=== PATIENT | male | born 1940 | race Caucasian/White ===

== ENCOUNTER 2017-09-02 12:32 | Inpatient (IN) | payer OTHER, MEDICAID ==
[~2017-09-02] VITALS: Ht 167.6 cm; Wt 70.8 kg
[2017-09-02 12:43] VITALS: BP 166/72
--- NOTE | 2017-09-02 12:50 | NUR ---
Patient ambulated to bed 3. RN evaluating patient at bedside.
[2017-09-02] MEDS ORDERED: NACL 0.9% 1,000 ML IV SCH (12:53)
--- NOTE | 2017-09-02 12:53 | NUR ---
PATIENT PRESENTS TO ED WITH C/O ABDOMINAL PAIN . PT STATES THE PAIN STARTED 3 DAYS AGO AND HAS GOTTEN PROGRESSIVELY WORSE . DENIES N/V/D; SKIN IS PINK/WARM/DRY; AAOX4 WITH EVEN AND STEADY GAIT; LUNGS CLEAR BL; HR EVEN AND REGULAR; PT DENIES ANY FEVER, CP, SOB, OR COUGH AT THIS TIME; PATIENT STATES PAIN OF 5/10 AT THIS TIME; VSS; PATIENT POSITIONED FOR COMFORT; HOB ELEVATED; BEDRAILS UP X2; BED DOWN. ER MD MADE AWARE OF PT STATUS.
[2017-09-02] MEDS ORDERED: FAMOTIDINE 20 MG/2 ML VIAL IVP ONE (12:55)
[2017-09-02] MEDS ORDERED: MORPHINE SULFATE 2 MG/ML SYR IVP ONE (12:55)
[2017-09-02] MEDS ORDERED: ONDANSETRON 4 MG/2 ML VIAL IVP ONE (12:55)
[2017-09-02 13:28] LABS: BASOPHILS # (AUTO) 0.1 K/uL (0.00-0.22); BASOPHILS % (AUTO) 0.8 % (0.0-2.0); EOSINOPHILS % (AUTO) 0.2 % (0.0-4.0); HEMATOCRIT 40.9 % (36-52); HEMOGLOBIN 13.8 g/dL (12.0-18.0); LYMPHOCYTES # (AUTO) 0.5 K/uL (2.0-11.5); LYMPHOCYTES % (AUTO) 4.7 % (20.5-51.1); MEAN CORPUSCULAR HEMOGLOBIN 31 pg (27-31); MEAN CORPUSCULAR HGB CONC 34 g/dL (33-37); MEAN CORPUSCULAR VOLUME 92 fL (80-94); MONOCYTES # (AUTO) 0.3 K/uL (0.8-1.0); MONOCYTES % (AUTO) 2.4 % (1.7-9.3); NEUTROPHILS # (AUTO) 10.8 K/uL (1.8-7.7); NEUTROPHILS % (AUTO) 91.9 % (42.2-75.2); PLATELET COUNT (AUTO) 284 K/uL (140-450); RED BLOOD CELL COUNT(AUTO) 4.44 MIL/uL (4.20-6.10)
[2017-09-02 13:39] LABS: ANION GAP 13.1 (8-16); CARBON DIOXIDE 28.5 mmol/L (21-32); CHLORIDE 101 mmol/L (98-107); CREATININE 0.9 mg/dL (0.7-1.3); GLUCOSE 146 mg/dL (74-106); POTASSIUM 3.6 mmol/L (3.5-5.1); SODIUM SERUM 139 mmol/L (136-145); UREA NITROGEN, BLOOD 15 mg/dL (7-18)
[2017-09-02 13:45] LABS: ALBUMIN 3.8 g/dL (3.4-5.0); AMYLASE 54 U/L (25-115); ASPARTATE AMINOTRANSFERASE 19 U/L (15-37); LIPASE 63 U/L (73-393); TOTAL BILIRUBIN 0.4 mg/dL (0.0-1.0)
[2017-09-02 13:55] LABS: WHITE BLOOD COUNT (AUTO) 11.7 K/uL (4.8-10.8)
--- NOTE | 2017-09-02 13:59 | NUR ---
Dr. Xiong evaluating patient at bedside.
--- NOTE | 2017-09-02 14:13 | NUR ---
PT TAKEN TO CT VIA W/C ACCOMPANIED BY [employer] AT THIS TIME.
[2017-09-02] MEDS ORDERED: HYDROmorphone 1 MG/ML AMP IVP ONE (14:35)
--- NOTE | 2017-09-02 15:23 | NUR ---
US AT BEDSIDE.
--- NOTE | 2017-09-02 15:56 | NUR ---
PT APPEARS TO BE RESTING COMFORTABLY IN BED; POSITIONED FOR COMFORT; WILL CONTINUE TO MONITOR.
[2017-09-02] MEDS ORDERED: HYDROcodone/APAP 7.5/325 MG 1 TAB PO PRN (16:25)
[2017-09-02] MEDS ORDERED: ONDANSETRON 4 MG/2 ML VIAL IM/IVP PRN (16:25)
[2017-09-02] MEDS ORDERED: DOCUSATE SODIUM 100 MG GELCAP PO PRN (16:25)
[2017-09-02] MEDS ORDERED: ACETAMINOPHEN 325 MG TAB PO PRN (16:25)
--- NOTE | 2017-09-02 16:46 | NUR ---
CALLED FABIANO JUAREZ TO GIVE REPORT; ANN STATES IN ISOLATION ROOM, WILL CALL BACK IN 10 MINUTES.
--- NOTE | 2017-09-02 16:48 | NUR ---
Dr. Beasley evaluatign patient at bedside.
--- NOTE | 2017-09-02 17:06 | NUR ---
REPORT GIVEN TO FABIANO UJAREZ.
[2017-09-02 17:07] LABS: PROTHROMBIN TIME 10.6 secs (10.8-13.4)
[2017-09-02 17:10] VITALS: BP 148/77
--- NOTE | 2017-09-02 17:11 | NUR ---
Patient will be admitted to care of DR. POLK. Admited to TELEMETRY. Will go to room 122A. Belongings list completed. Report to FABIANO JUAREZ.
[2017-09-02 17:17] LABS: APPEARANCE,URINE CLEAR (CLEAR); BILIRUBIN,URINE NEGATIVE (NEGATIVE); BLOOD, URINE TRACE-I (NEGATIVE); COLOR,URINE YELLOW (YELLOW); LEUKOCYTE ESTERASE ,URINE NEGATIVE (NEGATIVE); NITRITE, URINE NEGATIVE (NEGATIVE); PH,URINE 5.5 (5.0-9.0); UGLUCOSE NEGATIVE (NEGATIVE)
[2017-09-02 17:17] LABS: CHOL/HDL RATIO 4.5 (1-4.5); FREE T4 (FREE THYROXINE) 0.93 ng/dL (0.76-1.46); MAGNESIUM 1.8 mg/dL (1.8-2.4); PHOSPHORUS 3.7 mg/dL (2.5-4.9); THYROID STIMULATING HORMONE 2.6 uIU/mL (0.34-3.74)
[2017-09-02] MEDS ORDERED: BENAZEPRIL HCL 20 MG TABLET PO (17:19)
[2017-09-02 17:21] LABS: RBC,URINE 3-10 (FEW) /HPF (0-5)
[2017-09-02 17:22] LABS: WBC,URINE 0-5 (RARE) /HPF (0-5)
[2017-09-02 17:25] LABS: BARBITURATE, URINE NEG. ng/ml (NEG <=200); BENZODIAZEPINE, URINE NEG. ng/mL (NEG <=200); CANNABINOID, URINE NEG. ng/mL (NEG <=50); COCAINE, URINE NEG. ng/mL (NEG <=300); OPIATE, URINE POS. ng/mL (NEG <=2000); PHENCYCLIDINE SCREEN,URINE NEG. ng/mL (NEG <=25)
[2017-09-02] MEDS ORDERED: KETOROLAC 30 MG/ML VIAL IM PRN (17:30)
--- NOTE | 2017-09-02 17:30 | NUR ---
Admitted from ED , with chief complaint of ABDOMINAL PAIN X 3 DAYS. PT IS A 76 y/o ,Male, Cooperative,oriented to call light, bed, phone,television, bathroom, smoking policy,visiting hours, procedures, ID bracelet on. Belongings list checked. ADMISSION DONE WITH [employer] BARKER OPERATOR #[id number]
[2017-09-02] MEDS: NACL 0.9% 1,000 ML IV SCH (17:32)
[2017-09-02] MEDS: LISINOPRIL 20 MG TAB PO SCH ×2 (18:00→21:09)
[2017-09-02] MEDS ORDERED: KETOROLAC 30 MG/ML VIAL IVP PRN ×2 (19:15)
--- NOTE | 2017-09-02 19:29 | NUR ---
PT RESTING. NO SOB NOTED. NO C/O PAIN AT THIS TIME. NPO MAINTAINED. ENDORSED TO NEXT SHIFT NURSE FOR CONTINUITY OF CARE.
--- NOTE | 2017-09-02 19:30 | NUR ---
RECEIVED REPORT FROM AM NURSE. PT IS AAOX4, ON ROOM AIR. IV ACCESS IS INTACT, PATENT, AND ASYMPTOMATIC, RUNNING NS. NO SIGNS OF ACUTE DISTRESS, BOWEL SOUNDS ACTIVE ON ALL FOUR QUADRANTS. SKIN COLOR APPROPRIATE TO ETHNICITY, PT DENIES ANY PAIN AT THIS TIME. PT IS AMBULATORY WITH BP. PLAN OF CARE DISCUSSED, PT VERBALIZED UNDERSTANDING. BED IN LOW POSITION, BILATERAL HALF SIDE RAILS UP, CALL LIGHT WITHIN REACH, WILL CONTINUE TO MONITOR.
[2017-09-02 20:00] VITALS: BP 146/77
[2017-09-02] MEDS: LACTOBACILLUS RHAMNOSUS GG 1 EACH CAP PO SCH (21:09)
[2017-09-02] MEDS ORDERED: ceFAZolin 1,000 MG VIAL ONE (21:12)
[2017-09-03] VITALS: BP 149/68
--- NOTE | 2017-09-03 02:20 | NUR ---
PT IS SLEEPING, EASY TO AROUSE. NO SIGNS OF ACUTE DISTRESS. BED IN LOW POSITION, BILATERAL HALF SIDE RAILS UP, CALL LIGHT WITHIN REACH, WILL CONTINUE TO MONITOR.
[2017-09-03] MEDS: NACL 0.9% 1,000 ML IV SCH ×2 (02:25→12:25)
[2017-09-03 04:00] VITALS: BP 150/70
--- NOTE | 2017-09-03 05:20 | NUR ---
PT IS AWAKE, RESTING IN BED. NO SIGNS OF ACUTE DISTRESS. BED IN LOW POSITION, BILATERAL HALF SIDE RAILS UP, CALL LIGHT WITHIN REACH, WILL CONTINUE TO MONITOR.
[2017-09-03] MEDS ORDERED: ceFAZolin 1,000 MG VIAL ONE (05:22)
[2017-09-03 05:58] LABS: BASOPHILS # (AUTO) 0.1 K/uL (0.00-0.22); BASOPHILS % (AUTO) 1.1 % (0.0-2.0); EOSINOPHILS % (AUTO) 0.3 % (0.0-4.0); HEMATOCRIT 35.9 % (36-52); HEMOGLOBIN 12.6 g/dL (12.0-18.0); LYMPHOCYTES # (AUTO) 1.4 K/uL (2.0-11.5); LYMPHOCYTES % (AUTO) 10.9 % (20.5-51.1); MEAN CORPUSCULAR HEMOGLOBIN 32 pg (27-31); MEAN CORPUSCULAR HGB CONC 35 g/dL (33-37); MEAN CORPUSCULAR VOLUME 92 fL (80-94); MONOCYTES % (AUTO) 8.1 % (1.7-9.3); NEUTROPHILS # (AUTO) 10.1 K/uL (1.8-7.7); NEUTROPHILS % (AUTO) 79.6 % (42.2-75.2); PLATELET COUNT (AUTO) 256 K/uL (140-450); RED BLOOD CELL COUNT(AUTO) 3.91 MIL/uL (4.20-6.10); WHITE BLOOD COUNT (AUTO) 12.6 K/uL (4.8-10.8)
[2017-09-03 06:14] LABS: CARBON DIOXIDE 26.8 mmol/L (21-32); CHLORIDE 104 mmol/L (98-107); CREATININE 0.8 mg/dL (0.7-1.3); GLUCOSE 130 mg/dL (74-106); POTASSIUM 3.8 mmol/L (3.5-5.1); SODIUM SERUM 138 mmol/L (136-145); UREA NITROGEN, BLOOD 10 mg/dL (7-18)
--- NOTE | 2017-09-03 07:20 | NUR ---
ENDORSED PT TO AM NURSE FOR CONTINUITY OF CARE. PT IS IN STABLE CONDITION
--- NOTE | 2017-09-03 07:21 | NUR ---
RECEIVED REPORT FROM COLOR MIXER NURSE LETICIA AT BEDSIDE FOR CONTINUITY OF CARE. PT IS AWAKE AND ORIENTED. INTRODUCED SELF AND UPDATED BOARD. PT IN STABLE CONDITION.
[2017-09-03] MEDS ORDERED: DESFLURANE 240 ML BTL INH ONE (07:35)
[2017-09-03] MEDS ORDERED: GLYCOPYRROLATE 0.2 MG/ML VIAL IV ONE (07:35)
[2017-09-03] MEDS ORDERED: PHENYLEPHRINE 10 MG/ML VIAL IV ONE (07:35)
[2017-09-03] MEDS ORDERED: ONDANSETRON 4 MG/2 ML VIAL IVP ONE ×2 (07:35→09:53)
[2017-09-03] MEDS ORDERED: PROPOFOL 200 MG/20 ML VIAL IV ONE ×2 (07:35→09:53)
[2017-09-03] MEDS ORDERED: DEXAMETHASONE 4 MG/ML VIAL IVP ONE ×2 (07:35→09:53)
[2017-09-03] MEDS ORDERED: KETOROLAC 15 MG/ML VIAL IVP ONE (07:35)
[2017-09-03] MEDS ORDERED: SUCCINYLCHOLINE CHLORIDE 200 MG/10 ML VIAL IV ONE ×2 (07:35→09:53)
[2017-09-03 08:00] VITALS: BP 147/71
--- NOTE | 2017-09-03 08:35 | NUR ---
PT IS ON THE PHONE RIGHT NOW TALKING TO SISTER. UPDATED HER ON STATUS. PT AWARE OF SURGERY TODAY. NO COMPLAINTS AT THIS TIME WILL CONTINUE TO MONITOR.
[2017-09-03] MEDS ORDERED: BENAZEPRIL 20 MG TAB PO SCH ×3 (09:00→21:00)
--- NOTE | 2017-09-03 09:03 | NUR ---
PATIENT HAS BEEN SCREENED AND CATEGORIZED MODERATE NUTRITION RISK. PATIENT WILL BE SEEN WITHIN 3-5 DAYS OF ADMISSION. 09/05/17-09/07/[address]
[2017-09-03] MEDS ORDERED: ROCURONIUM 50 MG/5 ML VIAL IV ONE (09:53)
[2017-09-03] MEDS ORDERED: SEVOFLURANE 250 ML BTL INH ONE (09:53)
--- NOTE | 2017-09-03 10:00 | NUR ---
INSPECTION ENGINEER CALLED USING PHONE. KAMERON, ID #[id number] TRANSLATED FOR PT. SURGICAL CONSENT OBTAINED AND PT AWARE OF PROCEDURE. ASKED IF PT HAD ANY QUESTIONS. PT STATED NO.
[2017-09-03] MEDS: ATORVASTATIN 20 MG TAB PO SCH (10:27)
[2017-09-03] MEDS: LACTOBACILLUS RHAMNOSUS GG 1 EACH CAP PO SCH (10:27)
--- NOTE | 2017-09-03 10:59 | NUR ---
CM NOTE SPOKE WITH THAIS PH# [phone] WHO SAID THAT [facility] IS FULL RIS[facility] AND REVIEWS AND DISCHARGE NEEDS SHOULD ONLY BE SENT TO [facility]. SPOKE WITH CAROLA OF [facility] OUT OF AREA PH# [phone] WHO SAID THAT THERE IS NO ASSIGNED CYBER REVERSE ENGINEER YET BUT TO SEND REVIEWS TO [facility] FAX# [phone]. INITIAL REVIEW FAXED TO [facility] [phone] PH# [phone] OPT[facility].
[2017-09-03 12:00] VITALS: BP 152/75
--- NOTE | 2017-09-03 12:30 | NUR ---
PT WAS SEEN BY DR. SANCHEZ AND DR. BLANCO. PT AWARE THAT SURGERY IS RESCHEDULED TO LATER TODAY AT 5:30PM. DECREASED IV FLUID RATE TO 70ML/HR PER DR ORDER. PT REMAINS NPO. PT'S SISTER IS AT BEDSIDE. NO SIGNS OF DISTRESS. WILL CONTINUE TO MONITOR.
[2017-09-03 16:00] VITALS: BP 149/78
--- NOTE | 2017-09-03 16:50 | NUR ---
PT LEFT UNIT FOR SURGERY. LEFT VIA BED ACCOMPANIED BY [facility].
[2017-09-03] MEDS ORDERED: MIDAZOLAM 2 MG/2 ML VIAL ONE (17:06)
[2017-09-03] MEDS ORDERED: fentaNYL 0.05 MG/ML VIAL ONE (17:07)
[2017-09-03] MEDS ORDERED: MEPERIDINE 50 MG/ML SYR ONE (17:07)
[2017-09-03] MEDS ORDERED: BUPIVACAINE-MPF 0.25% 30 ML VIAL INJ ONE (17:11)
[2017-09-03] MEDS ORDERED: MEPERIDINE 25 MG/ML SYR IVP PRN (17:45)
[2017-09-03] MEDS: LACTATED RINGERS 1,000 ML IV SCH (17:45)
[2017-09-03] MEDS ORDERED: ONDANSETRON 4 MG/2 ML VIAL IVP PRN (17:45)
[2017-09-03] MEDS ORDERED: HYDROmorphone 1 MG/ML AMP IVP PRN (17:45)
[2017-09-03] MEDS ORDERED: diphenhydrAMINE 50 MG/ML VIAL IVP PRN (17:45)
[2017-09-03] MEDS ORDERED: THROMBIN KIT 20 MU VIAL TP ONE (18:42)
--- NOTE | 2017-09-03 19:39 | NUR ---
ENDORSED PT TO WEATHER STRIP INSTALLER NURSE JOSE FOR CONTINUITY OF CARE. PT STILL IN OR.
[2017-09-03 19:55] LABS: ANION GAP 10.6 (8-16); CARBON DIOXIDE 27.2 mmol/L (21-32); CHLORIDE 102 mmol/L (98-107); CREATININE 0.7 mg/dL (0.7-1.3); GLUCOSE 144 mg/dL (74-106); POTASSIUM 3.8 mmol/L (3.5-5.1); SODIUM SERUM 136 mmol/L (136-145); UREA NITROGEN, BLOOD 9 mg/dL (7-18)
[2017-09-03 20:01] LABS: ASPARTATE AMINOTRANSFERASE 59 U/L (15-37); TOTAL BILIRUBIN 0.8 mg/dL (0.0-1.0)
--- NOTE | 2017-09-03 20:13 | NUR ---
PT ARRIVED ON UNIT VIA GURNEY WITH OR NURSE. IS DROWSY AND CONFUSED, SET A BED ALARM ON, HE IS ON ROOM AIR. PT HAS 5 SMALL ABDOMINAL LAP INCISIONS WELL APPROXIMATED WITH DERMABOND. PT HAS A RIGHT AC 20G IV INFUSING LACTATED RINGERS ON AN OPEN LINE. PT IS IN STABLE CONDITION SBP SLIGHTLY ELEVATED AT 155, OTHERWISE VITAL SIGNS WNL. NO SIGNS OF DISTRESS NOTED. BED IN LOW POSITION, CALL LIGHT WITHIN REACH. WILL CONTINUE TO MONITOR.
[2017-09-03] MEDS: DEXT 5% / NACL 0.45% 1,000 ML IV SCH (20:25)
[2017-09-03 20:30] VITALS: BP 153/77
--- NOTE | 2017-09-03 21:51 | NUR ---
SPOKE WITH DR JUSTICE OVER THE PHONE, HE WANTED TO KNOW CHEMISTRY LAB RESULTS.
--- NOTE | 2017-09-03 22:14 | NUR ---
OUTSIDE PHARMACY CALLED TO RECOMMEND LOVENOX INSTEAD OF HEPARIN, SINCE PT DOES NOT HAVE RENAL IMPAIRMENT. TOLD PHARMACIST I WOULD SPEAK TO ABOUT IT.
[2017-09-04] VITALS: BP 150/71
[2017-09-04] MEDS ORDERED: HYDROmorphone 1 MG/ML AMP IVP PRN (00:10)
[2017-09-04 04:00] VITALS: BP 154/79
--- NOTE | 2017-09-04 04:30 | NUR ---
PT C/O 05/07 PAIN BUT DOES NOT WANT ANY PAIN MEDICATIONS. HE STATES "I'LL BE FINE IT'S NOT THAT PAINFUL." PT IS IN STABLE CONDITION, NO SIGNS OF DISTRESS NOTED. BED IN LOW POSITION, CALL LIGHT WITHIN REACH. WILL CONTINUE TO MONITOR.
[2017-09-04] MEDS: DEXT 5% / NACL 0.45% 1,000 ML IV SCH (05:20)
[2017-09-04 05:45] LABS: BASOPHILS # (AUTO) 0.1 K/uL (0.00-0.22); BASOPHILS % (AUTO) 0.8 % (0.0-2.0); EOSINOPHILS # (AUTO) 0.1 K/uL (0-0.4); EOSINOPHILS % (AUTO) 0.6 % (0.0-4.0); HEMATOCRIT 37.6 % (36-52); LYMPHOCYTES # (AUTO) 1.1 K/uL (2.0-11.5); LYMPHOCYTES % (AUTO) 7.5 % (20.5-51.1); MEAN CORPUSCULAR HEMOGLOBIN 33 pg (27-31); MEAN CORPUSCULAR HGB CONC 35 g/dL (33-37); MEAN CORPUSCULAR VOLUME 94 fL (80-94); MONOCYTES # (AUTO) 1.2 K/uL (0.8-1.0); MONOCYTES % (AUTO) 8.8 % (1.7-9.3); NEUTROPHILS # (AUTO) 11.6 K/uL (1.8-7.7); NEUTROPHILS % (AUTO) 82.3 % (42.2-75.2); PLATELET COUNT (AUTO) 238 K/uL (140-450); RED BLOOD CELL COUNT(AUTO) 3.98 MIL/uL (4.20-6.10); WHITE BLOOD COUNT (AUTO) 14.1 K/uL (4.8-10.8)
[2017-09-04] MEDS: LACTATED RINGERS 1,000 ML IV SCH (06:15)
--- NOTE | 2017-09-04 06:15 | NUR ---
DR SANCHEZ IS AT BEDSIDE. PT TOLD HER ABOUT HIS PAIN BUT SATES HE STILL DOESN'T WANT TO TAKE ANY PAIN MEDICATIONS BECAUSE "THE PAIN IS NOT TOO STRONG". PT IS IN STABLE CONDITION, NO SIGNS OF DISTRESS NOTED. BED IN LOW POSITION, CALL LIGHT WITHIN REACH. WILL CONTINUE TO MONITOR.
[2017-09-04 06:20] LABS: MAGNESIUM 1.7 mg/dL (1.8-2.4); PHOSPHORUS 2.3 mg/dL (2.5-4.9)
[2017-09-04 06:46] LABS: T4 (THYROXINE) 6.1 ug/dL (4.5-12.0)
[2017-09-04 07:03] LABS: ALBUMIN 2.9 g/dL (3.4-5.0); ANION GAP 10.8 (8-16); ASPARTATE AMINOTRANSFERASE 103 U/L (15-37); CARBON DIOXIDE 27.8 mmol/L (21-32); CHLORIDE 101 mmol/L (98-107); CREATININE 0.8 mg/dL (0.7-1.3); GLUCOSE 140 mg/dL (74-106); POTASSIUM 3.6 mmol/L (3.5-5.1); SODIUM SERUM 136 mmol/L (136-145); TOTAL BILIRUBIN 0.6 mg/dL (0.0-1.0); UREA NITROGEN, BLOOD 9 mg/dL (7-18)
--- NOTE | 2017-09-04 07:10 | NUR ---
RECEIVED PT REPORT FROM [employer] CUSTOMER SERVICE AGENT NURSE AT BEDSIDE. PT IS AOX4. PT SHOWED NO S/S OF ACUTE DISTRESS. 5 INCISIONS COVERED WITH DERMABOND. NOTED ON THE ABD. CLEAN, DRY, NO DRAINAGE NOTED. IV NOTED ON THE RIGHT ARM, PATENT, AND INFUSING WELL. WILL CONTINUE TO MONITOR.
--- NOTE | 2017-09-04 07:16 | NUR ---
ENDORSED PT TO DAY SHIFT RN FOR CONTINUITY OF CARE. PT IN STABLE CONDITION.
[2017-09-04] MEDS ORDERED: MAG SULF 2000 MG/WATER PREMIX 50 ML IV SCH (08:30)
--- NOTE | 2017-09-04 08:30 | NUR ---
PT AMBULATE TO RESTROOM W/ MINIMAL ASSISTANCE. PT DENIED DIZZINESS AND NAUSEA.
[2017-09-04 08:36] VITALS: BP 162/92
[2017-09-04] MEDS: BENAZEPRIL 20 MG TAB PO SCH (08:47)
[2017-09-04] MEDS: ATORVASTATIN 20 MG TAB PO SCH (08:47)
[2017-09-04] MEDS: LACTOBACILLUS RHAMNOSUS GG 1 EACH CAP PO SCH (08:47)
--- NOTE | 2017-09-04 09:00 | NUR ---
PT SHOWED NO S/S OF OF ACUTE DISTRESS. PT DENIED PAIN. PT SEEN BY DR. BLANCO. DR ORDERED TO DISCHARGE AND FOLLOW UP WITHIN 1-2 WEEKS.
--- NOTE | 2017-09-04 10:11 | NUR ---
CM NOTE CONCURRENT REVIEW FAXED TO [facility] [phone] # [phone] OPTION 1.
[2017-09-04 12:00] VITALS: BP 151/64
[2017-09-04] MEDS: SODIUM PHOS / POTASSIUM PHOS 1 PKT PDR PO SCH ×2 (12:19→17:30)
--- NOTE | 2017-09-04 13:00 | NUR ---
SISTER AT BEDSIDE. PT RESTING CALMLY. WILL CONTINUE TO MONITOR.
--- NOTE | 2017-09-04 13:50 | NUR ---
PT INSTRUCTED TO PERFORM IS; PT DID 1000X3 WITH GOOD EFFORT
[2017-09-04] MEDS ORDERED: CARVEDILOL 3.125 MG TAB PO SCH (14:13)
--- NOTE | 2017-09-04 17:00 | NUR ---
REINFORCED IS TEACHING WITH DEMONSTRATION. PT VERBALIZED UNDERSTANDING.
--- NOTE | 2017-09-04 17:00 | NUR ---
SPOKE WITH DR. SANCHEZ ABOUT BP TRENDING DOWN TO 146/87. REPORTED PT HAD PRODUCTIVE COUGH WITH WHITE PHLEGM. DR WILL SEE THE PT.
[2017-09-04 17:05] VITALS: BP 146/87
--- NOTE | 2017-09-04 19:23 | NUR ---
ENDORSED PT TO NIGHTSHIFT NURSE FOR CONTINUITY OF CARE. PT IS IN STABLE CONDITION
--- NOTE | 2017-09-04 19:24 | NUR ---
PATIENT REPORT RECEIVED AT BEDSIDE FROM MORNING NURSE. PATIENT IS AWAKE, ALERT, AND ORIENTED. AMBULATORY. NO SIGNS AND SYMPTOMS OF DISTRESS NOTED. NO COMPLAINTS OF PAIN AT THIS TIME. BED IN LOWEST POSITION, SIDE RAILS UP AND CALL LIGHT WITHIN REACH. WILL CONTINUE TO MONITOR.
[2017-09-04] MEDS: CARVEDILOL 3.125 MG TAB PO SCH (19:59)
[2017-09-04 20:00] VITALS: BP 149/88
[2017-09-04] MEDS: CEFAZOLIN IV SCH (20:00)
[2017-09-04] MEDS: NACL 0.9% IV SCH (20:00)
--- NOTE | 2017-09-04 21:34 | NUR ---
CHECKED ON PATIENT. PATIENT IS ASLEEP. NO SIGNS AND SYMPTOMS OF DISTRESS NOTED. BREATHING IS EVEN AND UNLABORED. BED IN LOWEST POSITION, SIDE RAILS UP AND CALL LIGHT WITHIN REACH. WILL CONTINUE TO MONITOR.
[2017-09-05] VITALS: BP 151/72
--- NOTE | 2017-09-05 01:30 | NUR ---
CHECKED ON PATIENT. PATIENT SITTING UP IN BED ABOUT TO GET OUT OF BED. TOLD PATIENT IT WAS 1:30 AM IN THE MORNING. PATIENT STATED "OH, I THOUGH IT WAS 5AM, I USUALLY WAKE UP AT 5." PATIENT WENT BACK TO BED.
[2017-09-05] MEDS: CEFAZOLIN IV SCH (04:03)
[2017-09-05] MEDS: NACL 0.9% IV SCH (04:03)
--- NOTE | 2017-09-05 05:25 | NUR ---
PATIENT REPORT GIVEN TO CHARGE NURSE CHIARA. PATIENT IS IN STABLE CONDITION
--- NOTE | 2017-09-05 05:27 | NUR ---
RECEIVED PT FROM CYNTHIA MARIO.PT IS IN STABLE CONDITION.TOOK OOB AND WALKED.SL PATENT.NO C/O PAIN AT THIS TIME. WILL CONTINUE MONITORING.
--- NOTE | 2017-09-05 06:35 | NUR ---
PT IS IN BED.DENIED ANY PAIN AND/OR DISCOMFORT.WILL ENDORSED TO AM SHIFT.
[2017-09-05] MEDS ORDERED: CARV3.122 PO (06:44)
[2017-09-05] MEDS ORDERED: ATOR20TA40 PO (06:44)
[2017-09-05] MEDS ORDERED: BENA20TA5 PO (06:44)
[2017-09-05 06:55] LABS: BASOPHILS # (AUTO) 0.1 K/uL (0.00-0.22); EOSINOPHILS % (AUTO) 0.2 % (0.0-4.0); HEMATOCRIT 36.5 % (36-52); HEMOGLOBIN 12.5 g/dL (12.0-18.0); LYMPHOCYTES # (AUTO) 0.9 K/uL (2.0-11.5); LYMPHOCYTES % (AUTO) 6.5 % (20.5-51.1); MEAN CORPUSCULAR HEMOGLOBIN 32 pg (27-31); MEAN CORPUSCULAR HGB CONC 34 g/dL (33-37); MEAN CORPUSCULAR VOLUME 93 fL (80-94); MONOCYTES # (AUTO) 1.2 K/uL (0.8-1.0); MONOCYTES % (AUTO) 8.9 % (1.7-9.3); NEUTROPHILS # (AUTO) 11.5 K/uL (1.8-7.7); NEUTROPHILS % (AUTO) 83.4 % (42.2-75.2); PLATELET COUNT (AUTO) 254 K/uL (140-450); RED BLOOD CELL COUNT(AUTO) 3.93 MIL/uL (4.20-6.10); RED CELL DISTRIBUTION WIDTH 12.1 % (11.6-13.7); WHITE BLOOD COUNT (AUTO) 13.7 K/uL (4.8-10.8)
[2017-09-05 07:06] LABS: ANION GAP 12.7 (8-16); CARBON DIOXIDE 25.9 mmol/L (21-32); CHLORIDE 99 mmol/L (98-107); CREATININE 0.8 mg/dL (0.7-1.3); GLUCOSE 129 mg/dL (74-106); POTASSIUM 3.6 mmol/L (3.5-5.1); SODIUM SERUM 134 mmol/L (136-145); UREA NITROGEN, BLOOD 12 mg/dL (7-18)
[2017-09-05] MEDS: SODIUM PHOS / POTASSIUM PHOS 1 PKT PDR PO SCH (07:09)
[2017-09-05 07:15] LABS: MAGNESIUM 1.9 mg/dL (1.8-2.4); PHOSPHORUS 1.9 mg/dL (2.5-4.9)
--- NOTE | 2017-09-05 07:40 | NUR ---
REPORT RECEIVED FROM [facility] NURSE. PT IN BED AWAKE ALERT AND OREITNED X4. PT IS ABLE TO MAKE NEEDS KNOWN WELL VIA BULGARIAN ONLY. PT IS RESPONSIVE TO VERBAL COMMAND APPROPRIATELY. PT DENIES ANY PAIN AT THIS TIME. ABD INCISIONS X4 PRESENT AND OPEN TO AIR. NO DRAINAGE OR REDNESS NOTED. ALL SAFETY MEASURES IN PLACE. V/S STABLE.
[2017-09-05 08:00] VITALS: BP 122/84
[2017-09-05] MEDS ORDERED: INFLUENZA VIRUS VACCINE QUAD 0.5 ML SYR IMVAC SCH (09:20)
[2017-09-05] MEDS: LACTOBACILLUS RHAMNOSUS GG 1 EACH CAP PO SCH (09:41)
[2017-09-05] MEDS: CARVEDILOL 3.125 MG TAB PO SCH (09:41)
[2017-09-05] MEDS: BENAZEPRIL 20 MG TAB PO SCH (09:42)
[2017-09-05] MEDS: ATORVASTATIN 20 MG TAB PO SCH (09:42)
--- NOTE | 2017-09-05 10:54 | NUR ---
CM NOTE CONCURRENT REVIEW FAXED TO [facility] [phone] # [phone] OPTION 1.
--- NOTE | 2017-09-05 12:27 | NUR ---
DISCHARGE EDUCATION ON MEDICATIONS, F/U WITH DR POLK WELL PCP AND DATE OF CHAS. PROVIDED TO PT AND HIS SISTER VIA JACK TAMP OPERATOR. S/S OF INFECTION AND WHEN TO NOTIFY MD IF CONDITION GET WORSE ALSO PROVIDED TO PT. VERBAL UNDERSTANDING OF EDUCATION RECEIVED FROM BOTH PT AND HIS SITER. PT DC VIA W/C BY THE INTERMODAL CUSTOMER SERVICE AT 1100
[2017-09-05] MEDS ORDERED: CARV3.12 PO (15:43)
[2017-09-05] MEDS ORDERED: BENA40TA PO (15:44)
[2017-09-05] MEDS ORDERED: ATOR20TA PO (15:45)
[2017-09-05] MEDS ORDERED: PHOS1PDR4 PO (15:53)
== END 2017-09-05 11:10 | disposition home or self-care (01) | DRG 417 ==
LOC: MED 12:32 → MTU 16:20
PROVIDERS: ADMIT Student in an Organized Health Care Education/Training Program; ATTEND Student in an Organized Health Care Education/Training Program
PROC: 0FN44ZZ Release Gallbladder, Percutaneous Endoscopic Approach (ICD-10-PCS; 2017-09-03)
PROC: 0DNW4ZZ Release Peritoneum, Percutaneous Endoscopic Approach (ICD-10-PCS; 2017-09-03)
PROC: 0FT44ZZ Resection of Gallbladder, Percutaneous Endoscopic Approach (ICD-10-PCS; principal; 2017-09-03 12:30)
PROC: 3E0234Z Introduction of Serum, Toxoid and Vaccine into Muscle, Percutaneous Approach (ICD-10-PCS; 2017-09-05)
DX: K80.00 Calculus of gallbladder with acute cholecystitis without obstruction (principal); I50.43 Acute on chronic combined systolic (congestive) and diastolic (congestive) heart failure; E44.0 Moderate protein-calorie malnutrition; I42.9 Cardiomyopathy, unspecified; E83.42 Hypomagnesemia; E83.39 Other disorders of phosphorus metabolism; E87.1 Hypo-osmolality and hyponatremia; J98.11 Atelectasis; E11.9 Type 2 diabetes mellitus without complications; E86.0 Dehydration; K57.30 Diverticulosis of large intestine without perforation or abscess without bleeding; R82.4 Acetonuria; K66.0 Peritoneal adhesions (postprocedural) (postinfection); I11.0 Hypertensive heart disease with heart failure; E78.5 Hyperlipidemia, unspecified; D72.829 Elevated white blood cell count, unspecified; Z87.891 Personal history of nicotine dependence; Z68.25 Body mass index [BMI] 25.0-25.9, adult; Z83.3 Family history of diabetes mellitus; Z82.3 Family history of stroke; Z23 Encounter for immunization
CPT/HCPCS: 36415; 71010; 76705; 80048; 80053; 80305; 81001; 82150; 83036; 83605; 83690; 83735; 83880; 84100; 84436; 84439; 84443; 84479; 84484; 85025; 85610; 85730; 86886; 86900; 86901; 87081; 90658; 93005; 96361; 96374; 96375; 99285; J0330; J0690; J1100; J1170; J1644; J1885; J2175; J2250; J2270; J2370; J2405; J2704; J3010; J3475; J3490; J7030; J7060; Q0092; Q9967

== ENCOUNTER 2017-12-22 10:35 | Emergency (ER) | payer OTHER, MEDICAID ==
[~2017-12-22] VITALS: Ht 170.2 cm; Wt 63.5 kg
[~2017-12-22 10:35] MED LIST: ATOR20TA PO; BENA40TA PO; CARV3.12 PO; PHOS1PDR4 PO
[2017-12-22 10:39] VITALS: BP 134/73
--- NOTE | 2017-12-22 10:43 | NUR ---
PATIENT PRESENTS TO ED WITH C/O cough x3-4 days hx cholecystectomy, HTN; DENIES N/V/D; SKIN IS PINK/WARM/DRY; AAOX4 WITH EVEN AND STEADY GAIT; LUNGS CLEAR BL; HR EVEN AND REGULAR; PT DENIES ANY FEVER, CP OR SOB AT THIS TIME; PATIENT STATES PAIN OF 0/10 AT THIS TIME; VSS; PATIENT POSITIONED FOR COMFORT; HOB ELEVATED; BEDRAILS UP X2; BED DOWN. ER MD MADE AWARE OF PT STATUS.
--- NOTE | 2017-12-22 10:43 | NUR ---
pt taken to bed 11.
--- NOTE | 2017-12-22 10:44 | NUR ---
DR PERES EVALUATING AAO PT AT BEDSIDE
[2017-12-22 11:05] VITALS: BP 129/65
--- NOTE | 2017-12-22 11:05 | NUR ---
Patient discharged with v/s stable. Written and verbal after care instructions given and explained. Patient alert, oriented and verbalized understanding of instructions. Ambulatory with steady gait. All questions addressed prior to discharge. ID band removed. Patient advised to follow up with PMD. Rx of MOTRIN, PREDNISONE, AZITHROMYCIN given. Patient educated on indication of medication including possible reaction and side effects. Opportunity to ask questions provided and answered.
== END 2017-12-22 11:05 | disposition home or self-care (01) ==
LOC: MED 10:35
DX: J11.1 Influenza due to unidentified influenza virus with other respiratory manifestations (principal); I10 Essential (primary) hypertension; Z90.49 Acquired absence of other specified parts of digestive tract
CPT/HCPCS: 99283